=== PATIENT | male | born 1970 | race Caucasian/White ===

== ENCOUNTER 2016-12-01 11:33 | Emergency (ER) | payer OTHER ==
[~2016-12-01] VITALS: Ht 175.3 cm; Wt 88.0 kg
[~2016-12-01 11:33] MED LIST: AMLO-114 PO; HYDR25TA4 PO
[2016-12-01 11:37] VITALS: TEMP 36.9; Ht 175.3 cm; Wt 88.0 kg
[2016-12-01] MEDS ORDERED: CEFTRIAXONE SOD INJ 1 GM ADDVIAL IM STA (12:43)
[2016-12-01] MEDS ORDERED: SULFAMETHOXAZOLE/TRIMETHOPRIM DS 800/160MG TAB PO STA (12:43)
[2016-12-01] MEDS ORDERED: XYLOCAINE 1%/SOD BICARB 20 ML VIAL INFIL ONE (12:45)
[2016-12-01] MEDS ORDERED: CEFTRIAXONE SOD 350MG/ML 1 GM VIAL IM ONE (12:56)
[2016-12-01] MEDS ORDERED: CEPH500C2 PO (14:03)
[2016-12-01] MEDS ORDERED: SULF800T23 PO (14:03)
--- NOTE | 2016-12-01 14:04 | EMERGENCY ROOM VISIT NOTE ---
ED Visit Note First contact with patient: 12:27 CHIEF COMPLAINT: Left third finger infection times one day HISTORY OF PRESENT ILLNESS: Patient is a 46-year-old white male, right-hand dominant, who presents to the emergency department for evaluation of left third finger pain. He was sent here by [email or web address]. Patient reports that at work yesterday, he felt a sharp pain on the palmar aspect of his left third finger, like he got a splinter in his finger. He was working with an engine, states that the splinter was likely have been metal. He noticed a small dark spot which she thought was a foreign body. The finger became progressively more red and swollen throughout the day. That evening when he got home, he opened the area with a needle. He tried to squeeze it, but there was no pus like drainage. He did not note a foreign body. He cleansed it with hydrogen peroxide and water. When he woke up this morning this finger was more swollen, and he had pain radiating up his hand toward his elbow. He rates his discomfort a 6/10. His last tetanus was about 5 years ago. He had an x-ray performed at [facility] which was reportedly negative. REVIEW OF SYSTEMS: Review of systems as per HPI. All other systems reviewed were negative. At least 6 systems reviewed. PMH: Electronic medical records are reviewed and summarized as above/below. See Problem List. Tetanus is up-to-date. SOCIAL HISTORY: Patient lives at home. Smoker. PHYSICAL EXAM: Vital Signs: Reviewed Nurse's notes. CONSTITUTIONAL: Patient is a pleasant, well-appearing 46-year-old white male who is awake and alert and in no acute distress. MUSCULOSKELETAL: Examination of the left hand show mild circumferential soft tissue swelling of the left third finger. Patient has a small open wound on the palmar aspect of the left third finger, over the proximal phalanx. The area is moderately tender to palpation. Some discomfort also over the PIP joint and MCP joint. The finger can be flexed fully, limited only by soft tissue swelling. He can be extended fully and hyperextended, without discomfort. Palm is nontender. There is no significant erythema or swelling noted in the palm of the hand or the dorsum of the hand. No lymphangitic streaking. Wrist range of motion is full and nontender. Radial and ulnar pulses are easily palpable. EMERGENCY DEPARTMENT COURSE: The patient was seen and evaluated as above. He is referred to the emergency department from [facility] for possible tenosynovitis. He sustained a possible foreign body versus puncture wound to the palmar aspect of the left third finger yesterday. X-ray performed earlier today was reportedly negative for foreign body. Patient's tetanus is up to date. He was given Rocephin 1 g IM and Bactrim DS 1 tablet orally. Finger wound was explored as noted below. There was no evidence for foreign body. His exam is not consistent with infectious tenosynovitis. I suspect it is only a localized infection at this time, however the patient was educated on the worrisome signs or symptoms for which he should return to the emergency department. Wound care measures were discussed. Differential diagnoses include puncture wound, foreign body, abscess, cellulitis , among others. I do not suspect tenosynovitis or osteomyelitis. Incision & Drainage Indication: Infection, possible foreign body. Location: Left third finger, palmar aspect Verbal consent was obtained after the risks and benefits were explained, including but not limited to bleeding, scarring, infection, pain, and bone/joint /nerve damage. At this time, the risks of the procedure are less than the risks of NOT performing the procedure. A time out was taken and the correct patient and site identified. The skin was prepped with betadine and a sterile field set. The wound was anesthetized with 1% lidocaine without epinephrine. The patient had a small area, less than 1 cm, of nonviable tissue which was debrided. He has good regarding a lesion tissue at the base of the wound. There is no deeper penetrating injury, no foreign body. Copious irrigation was performed using normal saline solution. The wound was explored for foreign bodies and none found. Area was then re-scrubbed with Betadine and cleansed and dressed. Problem List Medical Problems: (1) Hypertension Nos Status: Chronic Current/Historical Medications Scheduled Amlodipine (Norvasc), 10 MG PO DAILY Cephalexin Monohydrate (Keflex), 500 MG PO QID Hydrochlorothiazide (Hctz), 25 MG PO DAILY Sulfa/Trimethoprim (Bactrim Ds 800MG/160MG), 1 TAB PO BID Allergies Uncoded Allergies: N (Allergy, Unknown, 03/22/02) NONE (Allergy, Unknown, 03/22/02) Vital Signs Date Time Temp Pulse Resp B/P (MAP) Pulse Ox O2 Delivery O2 Flow Rate FiO2 12/01/16 14:29 76 20 136/77 98 12/01/16 13:13 81 18 133/89 96 Room Air 12/01/16 11:37 36.9 84 20 159/95 98 Room Air Medications Administered Medications (Trade) Dose Ordered Sig/Navarro Route Start Time Stop Time Status Last Admin Dose Admin Trimethoprim/ Sulfamethoxazole (Septra Ds 800/ 160MG Tab) 1 tab NOW STAT PO 12/01/16 12:43 12/01/16 12:45 DC 12/01/16 13:11 1 TAB Ceftriaxone Sodium (Rocephin Im) 997.5 mg STK-MED ONCE IM 12/01/16 12:56 12/01/16 12:57 DC 12/01/16 13:09 997.5 MG Departure Information Impression Primary Impression: Infected finger Additional Impression: Work related injury Prescriptions Sulfa/Trimethoprim (Bactrim Ds 800MG/160MG) Tab 1 TAB PO BID, #20 TAB Prov: Ann Morocho PA 12/01/16 Cephalexin Monohydrate (KEFLEX) 500 Mg Cap 500 MG PO QID, #40 CAP Prov: Ann Morocho PA 12/01/16 Referrals Mark Rendon D.OBill (PCP) Patient Instructions [facility] Additional Instructions Cephalexin(Keflex) 500mg: Take one pill four times daily for 10 days for your skin infection. All antibiotics can cause diarrhea. If this occurs and you feel worse or it does not resolve in 1-2 days follow up with your doctor or return to the Emergency Department as this could be signs of serious underlying problems. Any medication can cause an allergic reaction, stop the pills immediately and return to the ER for rash, hives, breathing difficulties, or swelling. Trimethoprim-Sulfamethoxazole(Bactrim DS): Take one pill twice daily for 10 days for your skin infection. All antibiotics can cause diarrhea. If this occurs and you feel worse or it does not resolve in 1-2 days follow up with your doctor or return to the Emergency Department as this could be signs of serious underlying problems. Any medication can cause an allergic reaction, stop the pills immediately and return to the ER for rash, hives, breathing difficulties, or swelling. Ibuprofen(Motrin, Advil) may be used for fever or pain. Use 600mg every six hours as needed. Take with food. Avoid using more than 2400mg in a 24 hour period. Do not use 2400mg per day for more than three consecutive days without physician direction. Prolonged inappropriate use can lead to stomach upset or ulcers. (AND/OR) Acetaminophen(Tylenol) may be used for fever or pain. Use 1000mg every six hours as needed. Avoid using more than 3000mg in a 24 hour period. Dressing changes daily, clean the area gently with mild soap and water cover with antibiotic ointment and a bandage until healed. Rest and drink plenty of fluids. Continue current medications. Return to the ER for severe pain, fevers, spreading redness, or any worsening of your condition. Follow up with your workers compensation physician within 2-3 days for a recheck of the current condition. Problem Qualifiers
[2016-12-01 14:29] VITALS: BP 136/77; PULSE 76; O2SAT 98
== END 2016-12-01 14:30 | disposition home or self-care (01) ==
LOC: C.EDB 11:36 → C.EDD 14:30
DX: L08.9 Local infection of the skin and subcutaneous tissue, unspecified (principal); Y99.0 Civilian activity done for income or pay; I10 Essential (primary) hypertension; F17.200 Nicotine dependence, unspecified, uncomplicated; Z79.899 Other long term (current) drug therapy

== ENCOUNTER 2017-04-16 15:42 | Emergency (ER) | payer BC, OTHER ==
[~2017-04-16] VITALS: Ht 175.3 cm; Wt 87.7 kg
[~2017-04-16 15:42] MED LIST changes: +CEPH500C2 PO; +SULF800T23 PO
[2017-04-16 15:48] VITALS: TEMP 36.9; Ht 175.3 cm; Wt 87.7 kg
[2017-04-16] MEDS ORDERED: OXYCODONE HCL IR 5 MG TAB (IMMEDIATE RELEASE) PO STA (16:04)
[2017-04-16] MEDS ORDERED: XYLOCAINE 1%/SOD BICARB 20 ML VIAL INFIL ONE (16:15)
[2017-04-16] MEDS ORDERED: BUPIVACAINE 0.5 % 5 MG/1 ML MPF 30ML VIAL INFIL ONE (16:15)
--- NOTE | 2017-04-16 16:40 | DIAGNOSTIC IMAGING REPORT ---
L FINGER(S) MIN 2 VIEWS ROUTINE HISTORY: 46 years-old Male LEFT 3RD, INFECTION, POSSIBLE FB, PALMAR OVER PROX PHALANX acute infection of the distal left third finger COMPARISON: None available TECHNIQUE: 3 views of the left fingers with attention to the third digit FINDINGS: There is a 3 mm linear lucent bony defects involving the distal tuft of the fourth distal phalanx with corticated margins suggesting sequela of remote trauma. Mild degenerative changes of the first carpometacarpal joint. No acute fracture or dislocation. Mild soft tissue swelling of the third digit without opaque foreign body or periostitis. No erosive changes. IMPRESSION: 1. Mild soft tissue tissue swelling of the third digit without acute fracture or dislocation. 2. Probable remote bony trauma of the distal phalanx fourth digit. The above report was generated using voice recognition software. It may contain grammatical, syntax or spelling errors. Electronically signed by: Jimmy Mai M.D. 04/16/2017 4:39 PM Dictated Date/Time: 04/16/2017 4:37 PM
[2017-04-16] MEDS ORDERED: SULFAMETHOXAZOLE/TRIMETHOPRIM DS 800/160MG TAB PO STA (16:43)
[2017-04-16] MEDS ORDERED: CEFTRIAXONE SOD INJ 1 GM ADDVIAL IV STA (16:43)
[2017-04-16] MEDS ORDERED: OXYCODONE IR HOME PACK PO ONE (17:30)
[2017-04-16] MEDS ORDERED: CEPH500C2 PO (17:41)
[2017-04-16] MEDS ORDERED: SULF800T23 PO (17:41)
--- NOTE | 2017-04-16 17:45 | EMERGENCY ROOM VISIT NOTE ---
ED Visit Note First contact with patient: 15:51 CHIEF COMPLAINT: Infection on the left third finger since this morning HISTORY OF PRESENT ILLNESS: Patient is a [id number] 46-year-old white male who presents emergency department for evaluation of left third finger pain , redness, swelling and a small blister concerning for infection. He states he noticed the symptoms when he woke up this morning. The finger was just a little bit sore and tight yesterday, he woke up this morning, noting the raised blister on the palmar aspect of the finger. He denies any new injury to the finger, however was seen here and treated about 5 months ago for a very similar infection after he injured his hand at work. He was working on an engine and thought he may have gotten a small shaving of metal in his finger, may also have just punctured it. He was actually seen and treated by myself. He reports that in November when the original injury occurred, his symptoms got completely better with the course of antibiotics and he was fine until today. He notes pain that radiates into the dorsum of his hand, all the way up his arm. He notes some soreness in his left armpit and has discomfort when he moves his left shoulder. He denies taking any medications, nor perform any interventions for his symptoms at this time. He denies any fever, chills or malaise. 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 There has been no drainage or discharge from the area. He rates his discomfort a 9/ 10. REVIEW OF SYSTEMS: Review of systems as per HPI. All other systems reviewed were negative. 10 systems reviewed. PMH: Electronic medical records are reviewed and summarized as above/below. See Problem List. Last tetanus was in 2011. SOCIAL HISTORY: Patient lives at home with his . He is employed. Positive tobacco and alcohol use, does not specify the amount. PHYSICAL EXAM: Vital Signs: Reviewed Nurse's notes. CONSTITUTIONAL: Patient is a well-appearing 46-year-old white male who is awake and alert and in no acute distress. HEART: Regular rate and rhythm. LUNGS: Clear to auscultation. INTEGUMENTARY/MUSCULOSKELETAL: Examination of the left hand show mild circumferential soft tissue swelling of the left third finger. Patient has cracking and scaling of his hands bilaterally, and a rash consistent with dyshidrotic eczema noted. On the palmar aspect of the left third finger, radial side, over the proximal phalanx, the patient has a small fluid-filled blister. The area is moderately tender to palpation. Some discomfort also over the PIP joint and MCP joint. The finger can be flexed fully, limited only by soft tissue swelling. He can be extended fully and hyperextended, without discomfort. Palm is nontender. There is no significant erythema or swelling noted in the palm of the hand. There is erythema noted into the dorsum of the hand, primarily over the second and third metacarpals, and the patient has faint lymphangitic streaking up the dorsum of the arm to the mid biceps region. There is no axillary lymphadenopathy appreciated. Wrist range of motion is full and nontender. Radial and ulnar pulses are easily palpable. EMERGENCY DEPARTMENT COURSE: The patient was seen and evaluated as above. I am familiar with him as I took care of him with 5 months ago when he presented with a similar infection. At that time there was concern for a possible foreign body versus a puncture wound. He was treated for infection with Keflex and Bactrim and his symptoms completely resolved until today. Repeat x-rays were obtained today and were unremarkable. I&D procedure was performed under digital block as noted below, and the blister was debrided. Culture was obtained and is pending. The patient was given 1 g of Rocephin the patient was medicated with oxycodone 10 mg orally for pain. IV and Bactrim DS 2 tablets orally. Patient's tetanus is up to date. He was given Rocephin 1 g IM and Bactrim DS 1 tablet orally. Possibility of a non-radiopaque foreign body was discussed with the patient. It was not felt that imaging with an ultrasound would be helpful given the infection, but may be something to consider if his symptoms recur. He may need to be referred to a hand surgeon. He does have cracking and scaling of his hands as well, small nicks and cuts and puncture wounds throughout, in addition to the dyshidrotic eczema. It is odd that he appears to have an infection in the same site that he had previously. His exam today is not consistent with infectious tenosynovitis, however he does present with lymphangitic streaking to the mid biceps region. The patient has no constitutional signs of illness. I do not suspect sepsis. He does not have any signs for osteomyelitis by x-ray. The patient was educated on the worrisome signs or symptoms for which he should return to the emergency department and was also welcome to return to the emergency department and 48 hours for a wound recheck. Wound care measures were discussed. He was placed in a metal finger splint for protection until the digital block wears off. The patient and his expressed understanding of the treatment plan and were in agreement. Medication reconciliation: I attest that I have personally reviewed the patient' s current medication list. Blood pressure screening: Patient was found to have a slightly elevated blood pressure due to circumstances. I do not believe that the patient requires hypertension monitoring. DIAGNOSTIC IMAGING: L FINGER(S) MIN 2 VIEWS ROUTINE HISTORY: 46 years-old Male LEFT 3RD, INFECTION, POSSIBLE FB, PALMAR OVER PROX PHALANX acute infection of the distal left third finger COMPARISON: None available TECHNIQUE: 3 views of the left fingers with attention to the third digit FINDINGS: There is a 3 mm linear lucent bony defects involving the distal tuft of the fourth distal phalanx with corticated margins suggesting sequela of remote trauma. Mild degenerative changes of the first carpometacarpal joint. No acute fracture or dislocation. Mild soft tissue swelling of the third digit without opaque foreign body or periostitis. No erosive changes. IMPRESSION: 1. Mild soft tissue tissue swelling of the third digit without acute fracture or dislocation. 2. Probable remote bony trauma of the distal phalanx fourth digit. PROCEDURE NOTE: Incision & Drainage Indication: Infection, possible foreign body. Location: Left third finger, palmar aspect Verbal consent was obtained after the risks and benefits were explained, including but not limited to bleeding, scarring, infection, pain, and bone/joint /nerve damage. At this time, the risks of the procedure are less than the risks of NOT performing the procedure. A time out was taken and the correct patient and site identified. The skin was prepped with betadine and a sterile field set. A digital block was performed using a 2: 1 mixture of 1% plain buffered lidocaine and 0.5% Sensorcaine. When adequate anesthesia was obtained, the blister was incised with an 11 blade. There was clear/bloody drainage noted which was cultured. The blister was deroofed, and tissue excised, the base of the blister was roughly 2 x 2 cm. There is no deeper penetrating injury, no foreign body. Copious irrigation was performed using normal saline solution. The wound was explored for foreign bodies and none found. Area was then re- scrubbed with Betadine and cleansed and dressed. He was placed in a metal finger splint. Patient tolerated the procedure well. Problem List Medical Problems: (1) Hypertension Nos Status: Chronic (2) Infected finger Status: Resolved (3) Infected finger Status: Resolved (4) Work related injury Status: Resolved Current/Historical Medications Scheduled Amlodipine (Norvasc), 10 MG PO DAILY Cephalexin Monohydrate (Keflex), 500 MG PO QID Hydrochlorothiazide (Hctz), 25 MG PO DAILY Sulfa/Trimethoprim (Bactrim Ds 800MG/160MG), 1 TAB PO BID Allergies Coded Allergies: No Known Allergies (Unverified , 04/16/17) Vital Signs Date Time Temp Pulse Resp B/P (MAP) Pulse Ox O2 Delivery O2 Flow Rate FiO2 04/16/17 18:30 81 16 124/80 96 04/16/17 17:35 83 16 146/88 96 Room Air 04/16/17 15:48 36.9 91 16 170/100 97 Room Air Medications Administered Medications (Trade) Dose Ordered Sig/Navarro Route Start Time Stop Time Status Last Admin Dose Admin Lidocaine HCl (Buffered Lidocaine 1% Inj) 20 ml ONE ONCE INFIL 04/16/17 16:15 04/16/17 16:16 DC 04/16/17 16:16 20 ML Bupivacaine HCl (Marcaine 0.5% MPF Inj) 30 ml NOW ONCE INFIL 04/16/17 16:15 04/16/17 16:16 DC 04/16/17 16:16 30 ML Oxycodone HCl (Roxicodone Immediate Rel Tab) 10 mg NOW STAT PO 04/16/17 16:04 04/16/17 16:08 DC 04/16/17 16:16 10 MG Trimethoprim/ Sulfamethoxazole (Septra Ds 800/ 160MG Tab) 2 tab NOW STAT PO 04/16/17 16:43 04/16/17 16:45 DC 04/16/17 17:28 2 TAB Ceftriaxone Sodium (Rocephin Inj) 1 gm NOW STAT IV 04/16/17 16:43 04/16/17 16:45 DC 04/16/17 17:29 1 GM Oxycodone HCl (Roxicodone Immediate Rel 5MG Home Pack) 1 homepack UD ONCE PO 04/16/17 17:30 04/16/17 17:31 DC 04/16/17 18:24 1 HOMEPACK Departure Information Impression Primary Impression: Infected finger Additional Impression: Acute lymphangitis of left upper extremity Prescriptions Cephalexin Monohydrate (KEFLEX) 500 Mg Cap 500 MG PO QID, #40 CAP Prov: Ann Morocho PA 04/16/17 Sulfa/Trimethoprim (Bactrim Ds 800MG/160MG) Tab 1 TAB PO BID, #20 TAB Prov: Ann Morocho PA 04/16/17 Referrals Mark Rendon D.O. (PCP) Patient Instructions [facility] Additional Instructions DO NOT drive, drink alcohol, operate machinery, or perform dangerous activities today. You were given medications in the ER that can affect your ability to safely function or operate a vehicle. Oxycodone (Oxy IR) 5mg: Take 1-2 pills every four hours for breakthrough pain. Avoid alcohol, operating machinery or dangerous equipment, working on ladders or roofs, DRIVING, or situations where being under the influence may be dangerous. It is recommended to use an [id number]-[id number] stool softener such as Colace, 100mg twice daily while taking this medication to avoid constipation. Cephalexin(Keflex) 500mg: Take one pill four times daily for 10 days for your skin infection. All antibiotics can cause diarrhea. If this occurs and you feel worse or it does not resolve in 1-2 days follow up with your doctor or return to the Emergency Department as this could be signs of serious underlying problems. Any medication can cause an allergic reaction, stop the pills immediately and return to the ER for rash, hives, breathing difficulties, or swelling. Trimethoprim-Sulfamethoxazole(Bactrim DS): Take one pill twice daily for 10 days for your skin infection. All antibiotics can cause diarrhea. If this occurs and you feel worse or it does not resolve in 1-2 days follow up with your doctor or return to the Emergency Department as this could be signs of serious underlying problems. Any medication can cause an allergic reaction, stop the pills immediately and return to the ER for rash, hives, breathing difficulties, or swelling. Ibuprofen(Motrin, Advil) may be used for fever or pain. Use 600mg every six hours as needed. Take with food. Avoid using more than 2400mg in a 24 hour period. Do not use 2400mg per day for more than three consecutive days without physician direction. Prolonged inappropriate use can lead to stomach upset or ulcers. (AND/OR) Acetaminophen(Tylenol) may be used for fever or pain. Use 1000mg every six hours as needed. Avoid using more than 3000mg in a 24 hour period. Warm compresses to the affected area 4 times daily for 15-20 minutes. Dressing changes daily. Clean the area with mild soap and water and cover with antibiotic ointment and a bandage until healed. Rest and drink plenty of fluids. Continue current medications. Return to the ER in 48 hours for wound recheck if needed, immediately for severe pain, persistent fevers, spreading redness, or any worsening of your condition. Follow up with your primary physician next week for a recheck of the current condition. Problem Qualifiers
[2017-04-16 18:30] VITALS: BP 124/80; PULSE 81; O2SAT 96
== END 2017-04-16 18:30 | disposition home or self-care (01) ==
LOC: C.EDB 15:44
DX: S60.423A Blister (nonthermal) of left middle finger, initial encounter (principal); L08.9 Local infection of the skin and subcutaneous tissue, unspecified; L03.124 Acute lymphangitis of left upper limb; X58.XXXA Exposure to other specified factors, initial encounter; F17.200 Nicotine dependence, unspecified, uncomplicated; Z72.89 Other problems related to lifestyle; I10 Essential (primary) hypertension

== ENCOUNTER → 2017-05-19 | Outpatient (CLI) | payer BC ==
--- NOTE | 2017-05-28 21:44 | CODING QUERY NO DIAGNOSIS ---
Valid Physician Order Needed A valid physician order must be submitted in order to properly bill for the service(s) provided, including date of service(s), valid diagnosis, and physician signature. If these tests are done on a recurring basis the original physician order must be submitted in order to code and bill for the service(s) provided. Please fax us the original, signed physician order so that we may expedite billing to [phone] DOS 05/19/2017 * AERO/ANAE CULTURE & GRAM STAIN (DEEP TENDON SHEATH) * AERO/ANAE CULTURE & GRAM STAIN (SUPERFICIAL) (No diagnoses on orders provided. Order for deep tendon sheath also needs physician signature.) Thank you Lula Schwarz [employer]
== END | disposition home or self-care (01) ==
LOC: C.LABSPEC 17:04
PROVIDERS: ATTEND Orthopaedic Surgery
DX: M79.5 Residual foreign body in soft tissue (principal)